=== PATIENT | female | born 2000 | race Caucasian/White ===

== ENCOUNTER 2023-07-18 01:46 | Emergency (ER) | payer SELFPAY ==
[2023-07-18] MEDS ORDERED: Ketorolac 30 MG/ML SDV IM ONE (02:30)
[2023-07-18] MEDS ORDERED: Dexamethasone 10 MG/ML SDV PO ONE (02:30)
== END 2023-07-18 03:40 | disposition home or self-care (01) ==
LOC: MW.ED 01:46
DX: J02.0 Streptococcal pharyngitis (principal); Z20.822 Contact with and (suspected) exposure to COVID-19
CPT/HCPCS: 87635; 87651; 96372; 99284; J1885; J8540; 99282; U0002

== ENCOUNTER 2024-05-09 05:05 | Inpatient (IN) | payer SELFPAY ==
[2024-05-09] MEDS ORDERED: Sodium Chloride 0.9% 20 ML SDV IV PRN (10:43)
[2024-05-09] MEDS ORDERED: Acetaminophen 325 MG Tab PO PRN (10:43)
[2024-05-09] MEDS ORDERED: Tranexamic Acid IN NACL,ISO-OS 1,000 MG in Premix Bag 1 BAG IV PRN (10:43)
[2024-05-09] MEDS ORDERED: Ondansetron 4 MG/2 ML SDV IVPUSH PRN (10:43)
[2024-05-09] MEDS ORDERED: Sodium Chloride 0.9% 2.5 ML Syringe FLUSH PRN ×2 (10:43→15:55)
[2024-05-09] MEDS ORDERED: Lidocaine 1% 50 ML MDV INJECT PRN (10:43)
[2024-05-09] MEDS ORDERED: Misoprostol 200 MCG Tab PO PRN (10:43)
[2024-05-09] MEDS ORDERED: Sodium Chloride 0.9% 10 ML Syringe FLUSH PRN ×2 (10:43→15:55)
[2024-05-09] MEDS ORDERED: Terbutaline 1 MG/ML SDV SUBCUT PRN (10:43)
[2024-05-09] MEDS ORDERED: Nalbuphine 10 MG/0.5 ML Syringe IVPUSH PRN (10:43)
[2024-05-09] MEDS ORDERED: Carboprost Tromethamine 250 MCG/1 mL Vial IM PRN (10:43)
[2024-05-09] MEDS ORDERED: Butorphanol 2 MG/ML SDV IVPUSH PRN (10:43)
[2024-05-09] MEDS ORDERED: Methylergonovine 0.2 MG/1 ML Amp IM PRN (10:43)
[2024-05-09] MEDS ORDERED: Water For Irrigation,Sterile 1,000 ML Container IRR PRN (10:43)
[2024-05-09] MEDS ORDERED: Oxytocin/0.9 % Sodium Chloride 30 UNIT/500 ML BAG IV SCH (10:45)
[2024-05-09] MEDS ORDERED: Phenylephrine HCl In 0.9% NaCl 1 MG/10 ML Syringe IVPUSH PRN (11:36)
[2024-05-09] MEDS ORDERED: ePHEDrine 50 MG/ML SDV IVPUSH PRN ×2 (11:36)
[2024-05-09] MEDS ORDERED: dexmedeTOMIDine HCl 200 MCG/2 ML SDV EPIDUR SCH (11:45)
[2024-05-09 11:59] LABS: HEMATOCRIT 31.2 % (37.0-47.0); HEMOGLOBIN 10.3 g/dL (12.0-16.0); MEAN CORPUSCULAR HEMOGLOBIN 28.1 pg (28.0-32.0); MEAN CORPUSCULAR VOLUME 85.2 fL (83.0-99.0); MEAN PLATELET VOLUME 11.3 fL (9.4-12.3); PLATELET COUNT,PLT 241 K/uL (150-400); RED BLOOD CELL COUNT 3.66 M/uL (4.10-5.30); WHITE BLOOD CELL COUNT,WBC 12.31 K/uL (3.9-11.3)
[2024-05-09] MEDS: Lactated Ringers 1,000 ML IV SCH (12:05)
[2024-05-09] MEDS: Oxytocin/0.9 % Sodium Chloride 30 UNIT/500 ML BAG IV SCH (12:13)
[2024-05-09 14:25] LABS: AMPHETAMINES SCREEN, URINE NEGATIVE (CUTOFF=500); BARBITURATE SCREEN,URINE NEGATIVE (CUTOFF=200); BENZODIAZEPINES SCREEN,URINE NEGATIVE (CUTOFF=150); BUPRENORPHINE SCREEN,URINE NEGATIVE (CUTOFF=10); METHADONE SCREEN, URINE NEGATIVE (CUTOFF=200); METHAMPHETAMINES SCREEN, URINE NEGATIVE (CUTOFF=500); OXYCODONE SCREEN,URINE NEGATIVE (CUT0FF=100); PCP SCREEN,URINE NEGATIVE (CUTOFF=25); THC SCREEN,URINE 20 NG/ML NEGATIVE (CUTOFF=50)
[2024-05-09] MEDS: Ropivacaine HCl/PF 400 MG in Premix Bag 1 BAG EPIDUR SCH (15:32)
[2024-05-09] MEDS ORDERED: Simethicone 80 MG Tab.Chew PO PRN (16:00)
[2024-05-09] MEDS ORDERED: Benzocaine/Menthol 20%-0.5% Spray 78 GM Cannister TOP PRN (16:00)
[2024-05-09 21:43] LABS: PH,UMBILICAL ARTERIAL 7.186 (7.18-7.38); PH,UMBILICAL VENOUS 7.322 (7.25-7.45)
[2024-05-10] MEDS: Ibuprofen 800 MG Tab PO PRN (00:06)
[2024-05-10] MEDS: Docusate Sodium 100 MG Cap PO PRN (00:06)
[2024-05-10] MEDS: Acetaminophen 500 MG Tab PO PRN (02:20)
[2024-05-10 05:50] LABS: HEMATOCRIT 29.5 % (37.0-47.0); HEMOGLOBIN 9.5 g/dL (12.0-16.0); MEAN CORPUSCULAR HEMOGLOBIN 28.1 pg (28.0-32.0); MEAN CORPUSCULAR HGB CONC 32.2 g/dL (32.0-36.0); MEAN CORPUSCULAR VOLUME 87.3 fL (83.0-99.0); MEAN PLATELET VOLUME 11.2 fL (9.4-12.3); PLATELET COUNT,PLT 233 K/uL (150-400); RED BLOOD CELL COUNT 3.38 M/uL (4.10-5.30); WHITE BLOOD CELL COUNT,WBC 14.21 K/uL (3.9-11.3)
[2024-05-10] MEDS: Ferrous Sulfate 325 MG Tab PO SCH (08:35)
[2024-05-10] MEDS ORDERED: Docusate Sodium 250 MG Cap PO SCH (09:00)
[2024-05-10] MEDS: Prenatal Multivitamin with Calcium/Folic Acid/Iron Tab PO SCH (10:38)
[2024-05-10] MEDS: Lanolin 100% Cream 7 GM Tube TOP PRN (20:30)
[2024-05-11] MEDS: Witch Hazel Medicated Pads 40/Jar TOP PRN (12:50)
== END 2024-05-11 18:22 | disposition still patient (30) | DRG 807 ==
LOC: MW.OBCHECK 05:05 → MW.OB 05:07 → MW.OBCHECK 13:40 → MW.OB 13:41 → OBSVTOIN 20:32 → MW.OB 23:10
PROVIDERS: ADMIT Obstetrics & Gynecology; ATTEND Obstetrics & Gynecology
PROC: 10E0XZZ Delivery of Products of Conception, External Approach (ICD-10-PCS; principal; 2024-05-09)
PROC: 0KQM0ZZ Repair Perineum Muscle, Open Approach (ICD-10-PCS; 2024-05-09)
PROC: 10907ZC Drainage of Amniotic Fluid, Therapeutic from Products of Conception, Via Natural or Artificial Opening (ICD-10-PCS; 2024-05-09)
PROC: 3E0R3BZ Introduction of Anesthetic Agent into Spinal Canal, Percutaneous Approach (ICD-10-PCS; 2024-05-09)
PROC: 00HU33Z Insertion of Infusion Device into Spinal Canal, Percutaneous Approach (ICD-10-PCS; 2024-05-09)
DX: O48.0 Post-term pregnancy (principal); Z37.0 Single live birth; O70.1 Second degree perineal laceration during delivery; O99.344 Other mental disorders complicating childbirth; F41.9 Anxiety disorder, unspecified; F32.A Depression, unspecified; O99.02 Anemia complicating childbirth; Z3A.40 40 weeks gestation of pregnancy
CPT/HCPCS: 01967; 36415; 51702; 59025; 59409; 59414; 80305-QW; 82803; 85027; 86592; 86850; 86900; 86901; A9270-GY; J2590; J2795; J7120